=== PATIENT | female | born 1965 | race Caucasian/White ===

== ENCOUNTER 2022-08-02 11:44 | Emergency (ER) | payer SELFPAY ==
[2022-08-02 11:58] VITALS: BP 132/84; PULSE 102; RESP 18; TEMP 36.3; O2SAT 93
--- NOTE | 2022-08-02 13:23 | XRR_ITS ---
PROCEDURE INFORMATION: Exam: XR Chest Exam date and time: 08/02/2022 1:24 PM Age: 56 years old Clinical indication: Cough TECHNIQUE: Imaging protocol: Radiologic exam of the chest. Views: 1 view. COMPARISON: No relevant prior studies available. FINDINGS: Lungs: No consolidation. Pleural spaces: Unremarkable. No pleural effusion. No pneumothorax. Heart/Mediastinum: No cardiomegaly. Bones/joints: No acute findings. Suspected old fractures in the posterior segments of the left ribs 7-9. XR/XR chest 1V portable [id number] IMPRESSION: No acute findings.
--- NOTE | 2022-08-02 13:23 | W.ED.URI ---
HPI - URI/Sore Throat General: Chief Complaint: Upper Respiratory Infection Stated Complaint: cough, sob Time Seen by Provider: 08/02/22 13:01 Source: patient Mode of arrival: ambulatory Limitations: no limitations History of Present Illness: Patient is a 56-year-old female presents to ED today with a complaint of a sore throat, hoarseness, and a nonproductive cough over the past 3 to 4 days. She is not running any fevers. She does have a complaint stating that she feels like she pulled something in the right side of her chest after coughing. Pain is located to the right posterior aspect of her chest wall. Patient is eating, drinking, and controlling saliva normally. No muffled voice. MD elicited complaint: cough and other (hoarseness) Onset (ago): day(s) Consistency: constant Severity: mild Description of mucous: clear Able to tolerate fluids by mouth: Yes Exacerbating factors: swallowing Relieving factors: nothing Associated symptoms: Reports chest pain (reports right rib pain); Deny abdominal pain, chills, diarrhea, epistaxis, ear or mastoid pain, fever(s), headache(s), nasal congestion, nausea, sinus pain or vomiting Treatments prior to arrival: none Review of Systems Const: Denies: fever(s), chills, body aches, fatigue or malaise Eyes: Denies: change in vision, blurry vision, photophobia, eye discomfort, floaters or seeing flashes ENMT: Reports: throat pain, odynophagia and other (hoarseness); Denies: mouth pain, swelling of lips/tongue, oral sores, dental pain, ear or mastoid pain, ear discharge, change in hearing, nasal discharge, nasal congestion, epistaxis, post nasal drip or sinus pain Card: Reports: chest pain (reports right rib pain); Denies: palpitations, irregular heart rhythm, edema, swelling of feet/ankles, lightheadedness, syncope, pre-syncope, dyspnea on exertion, orthopnea, leg pain with exertion or acrocyanosis Resp: Reports: non-productive cough and chest congestion; Denies: dyspnea, productive cough, wheezing, stridor, pain on inspiration, change in phlegm color or hemoptysis GI: Denies: abdominal pain, nausea, vomiting or diarrhea : Denies: flank pain, dysuria or hematuria Musc: Denies: neck pain, back pain, extremity pain or joint pain Skin/Breast: Denies: rash Neuro: Denies: headache(s) or dizziness Physical Exam Const: COMMON NORMALS: no acute distress, patient oriented x3, no limitations, alert and well nourished GENERAL APPEARANCE: cooperative ORIENTATION/CONSCIOUSNESS: Yes awake, Yes oriented to person, Yes oriented to place and Yes oriented to time HENMT: COMMON NORMALS: normocephalic, atraumatic, hearing grossly normal bilaterally, external ears normal, EAC's normal, TM's normal bilaterally, Normal external nose present, Normal nasal mucous membranes and turbinates present, moist oral mucous membranes and oropharynx normal HEAD & SCALP: normal to inspection, normocephalic and atraumatic FACE & SINUS: normal facial exam and sinuses nontender NOSE: Normal external nose present and Normal nasal mucous membranes and turbinates present EXTERNAL EAR: Yes external ears normal EXTERNAL AUDITORY CANAL: EAC's normal TYMPANIC MEMBRANE: TM's normal bilaterally MOUTH: Normal oral and palatal mucosa present, lip normal and tongue normal THROAT: posterior oropharynx normal, tonsils normal and uvula midline Eye: COMMON NORMALS: Equal, round and reactive pupils present, EOMs intact bilaterally and conjunctivae normal CONJUNCTIVA: Yes conjunctivae normal PUPIL: Yes Equal, round and reactive pupils present Neck/C-Spine: COMMON NORMALS: full ROM and no lymphadenopathy GENERAL: Yes normal visual inspection, No anterior neck swelling and No submandibular swelling Chest: COMMONS NORMALS: normal inspection of the chest OTHER: tenderness R posterior chest wall-palpation reproduces pts pain; pain worse with coughing; no tenderness at rest Resp: COMMON NORMALS: normal respiratory effort and clear to auscultation bilaterally AUSCULTATION: clear to auscultation bilaterally Cardio: COMMON NORMALS: regular rate and regular rhythm RATE: regular rate RHYTHM: regular rhythm : COMMON NORMALS: Yes no CVA tenderness BLADDER/KIDNEY EXAM: Yes no CVA tenderness Back/Pelvis: COMMON NORMALS: no CVA tenderness Extremity: COMMON NORMALS: normal to inspection, capillary refill normal, no joint enlargement, no clubbing, cyanosis or edema, no calf tenderness and no pedal edema GENERAL: Yes normal exam except as noted Neuro: [place] COMA SCALE: document GCS findings [place] coma scale eye opening: Spontaneous [place] coma scale verbal response: Orientated [place] coma scale motor response: Obey commands [place] coma scale total score: 15 COMMON NORMALS: patient oriented x3 SENSORIUM/ORIENTATION: Yes alert, Yes oriented to person, Yes oriented to place and Yes oriented to time SPEECH: speech normal Skin: COMMON NORMALS: no rashes or lesions noted GENERAL SKIN EXAM: no rashes or lesions noted Course Vital Signs: Vital signs: Vital Signs Temperature 97.3 F L 08/02/22 11:58 Pulse Rate 102 H 08/02/22 11:58 Respiratory Rate 18 08/02/22 11:58 Blood Pressure 132/84 08/02/22 11:58 Pulse Oximetry 93 08/02/22 11:58 Oxygen Delivery Me thod Room Air 08/02/22 11:58 MDM - URI/Sore Throat Medical Decision Making CXR normal. Patient appears in NAD. Most likely viral etiology. Recommend f/u with PCP in 1-2 weeks for no improvement. Return to ED precautions given. Lab Data Radiology Impressions Chest X-Ray 08/02/22 13:23 IMPRESSION: No acute findings. Discharge Plan Discharge Patient Disposition: Home Clinical Impression: Viral upper respiratory tract infection with cough Condition: Stable Discharge Orders: Discharge ED (Routine); Ordered 08/02/22 Ordered By: Shy Rodríguez Patient Instructions: Upper Respiratory Infection (DC) Coding Level of Care Code ED Computer Terminal Operator for Lyn Anne
--- NOTE | 2022-08-07 13:48 | DCPLANNER ---
talent manager called patient due to no primary care physician - no answer at this time.
== END 2022-08-02 14:36 | disposition home or self-care (01) ==
PROVIDERS: Emergency Provider Physician Assistant
DX: J06.9 Acute upper respiratory infection, unspecified (principal); R05.9 Cough, unspecified
CPT/HCPCS: 71045; 99283